=== PATIENT | female | born 1960 | race Caucasian/White ===

== ENCOUNTER 2021-08-29 14:51 | Emergency (ER) | payer BC ==
[~2021-08-29] VITALS: Ht 160 cm; Wt 75.3 kg
--- NOTE | 2021-08-29 15:27 | PHYS DOC ---
General Adult EDM: Chief Complaint: LACERATION/AVULSION HPI: HPI: Patient is a 61-year-old female who presents to the emergency department today for right fifth finger pain and a laceration to the site. Patient reports that she was walking with a stack of 3 dishes when she tripped over something at [employer] and fell. She reports that one of the dishes broke and cut her hand. Patient is unsure of her last tetanus shot. She reports swelling and pain to her right fifth finger as well as bruising. She reports decreased flexion due to pain and denies any decreased sensation. Review of Systems: Review of Systems: HEENT: See HPI Musculoskeletal: See HPI Integument: See HPI Neurologic: Denies hitting head or loss of consciousness Allergies: Allergies: Allergies Coded Allergies Type Severity Reaction Last Updated Verified No Known Drug Allergies 08/29/21 No Physical Exam: PE: Constitutional: Well developed, well nourished, no acute distress, non-toxic appearance. [] HENT: Normocephalic, atraumatic Eyes: PERRL, EOMI, conjunctiva normal, no discharge. [] Neck: Normal range of motion, no tenderness, supple, no stridor. [] Cardiovascular: Normal peripheral perfusion Lungs & Thorax: Normal work of breathing, no tachypnea Abdomen: Soft and flat Skin: Warm, dry, no erythema, no rash. [] Back: Normal range of motion Extremities: No tenderness, no cyanosis, no clubbing, ROM intact, no edema. [] Right fifth finger: Swelling and ecchymosis noted to right fifth finger, 1 cm superficial well approximated laceration noted to the palmar aspect of right fifth finger, decreased flexion due to pain and swelling, neuro intact Neurologic: Alert and oriented X 3, normal motor function, normal sensory function, no focal deficits noted. [] Psychologic: Affect normal, judgement normal, mood normal. [] EKG: EKG: [] Radiology/Procedures: Radiology/Procedures: []PROCEDURE: FINGER(S) RIGHT XR FINGER(S)_RIGHT 2+VIEWS 08/29/2021 3:20 PM INDICATION: Finger laceration injury COMPARISON: None available. TECHNIQUE: 3 views of the fifth digit of the right hand are provided. FINDINGS/ IMPRESSION: There is no acute fracture or dislocation. Moderate to advanced osteoarthrosis of the first carpometacarpal joint with subcortical sclerosis, joint space narrowing and marginal osteophytosis. Moderate osteoarthrosis of the proximal interphalangeal joint of the fifth digit and mild osteoporosis of the distal interphalangeal joint of the fifth digit. Soft tissue swelling is identified along the proximal aspect of the fifth digit. Bone mineralization is within normal limits. There is no soft tissue gas or osseous erosion. No radiopaque foreign body. Electronically signed by: Mouna Davidson MD (08/29/2021 4:19 PM) [facility] DICTATED AND SIGNED BY: MOUNA DAVIDSON MD DATE: 08/29/211616 CC: DELILAH MCKAY; BIRGIT GOODRICH APRN ~PROCEDURE: KNEE RIGHT 3V XR KNEE 3 VIEWS_RT 08/29/2021 3:37 PM INDICATION: Fall, knee pain COMPARISON: None available. TECHNIQUE: 3 views of the right knee are provided. FINDINGS/ IMPRESSION: Mild to moderate medial femorotibial joint space narrowing with marginal osteophytosis compatible with moderate osteoarthrosis. Mild patellofemoral osteoarthrosis. Small knee joint effusion. No acute fracture or dislocation. Bone mineralization is within normal limits. No subcutaneous gas or osseous erosion. No radiopaque foreign density. Electronically signed by: Mouna Davidson MD (08/29/2021 4:20 PM) [facility] DICTATED AND SIGNED BY: MOUNA DAVIDSON MD DATE: 08/29/211618 CC: DELILAH MCKAY; BIRGIT GOODRICH APRN ~ Heart Score: C/O Chest Pain: N/A Risk Factors: Risk Factors: DM, Current or recent (<one month) smoker, HTN, HLP, family history of CAD, obesity. Risk Scores: Score 0 - 3: 2.5% MACE over next 6 weeks - Discharge Home Score 4 - 6: 20.3% MACE over next 6 weeks - Admit for Clinical Observation Score 7 - 10: 72.7% MACE over next 6 weeks - Early Invasive Strategies Course & Med Decision Making: Course & Med Decision Making Pertinent Labs and Imaging studies reviewed. (See chart for details) Patient presents to the emergency department following a fall with the complaints of right fifth finger pain and a laceration to that site. Patient also reports that she had a recent right meniscal repair and is complaining of right knee pain. Imaging was performed that showed no acute findings. Patient's laceration was cleansed in the emergency department and was repaired with Dermabond. Wound is well approximated, no tendon involvement, superficial with no foreign body. Patient educated on laceration care. I discussed with patient all findings and diagnostic testing as well as the need to follow-up with PCP for further evaluation and treatment or return to the ER if any new or worsening symptoms. Strict return precautions were also discussed at length. Patient voiced understanding and agreement with the plan. Patient is hemodynamically stable at the time of disposition. Dragon Disclaimer: Dragon Disclaimer: This electronic medical record was generated, in whole or in part, using a voice recognition dictation system. Departure Departure: Impression: Primary Impression: Laceration Disposition: HOME / SELF CARE / HOMELESS Condition: GOOD Referrals: DELILAH MCKAY (PCP) Patient Instructions: Laceration Care, Adult Additional Instructions: You are seen in the emergency department today for hand injury and laceration to your finger. There is no acute fractures noted to your hand or knee. Your laceration was repaired with skin glue. Please keep this clean and dry. Do not submerge your hand in any water for at least 3 days. Monitor for any signs of infection which include redness, warmth, swelling or drainage. You can take Tylenol and ibuprofen for pain at home. You can also apply ice to any sore areas. Follow-up with your primary care provider within a week. Return to the emergency department if you develop any signs of infection, inability to bear weight or walk, decreased range of motion or decreased sensation in your finger. BIRGIT GOODRICH [employer] Aug 29, 2021 15:27
[2021-08-29] MEDS ORDERED: DIPHTH,PERTUSS(ACELL),TET TOX 0.5 ML DISP.SYRIN. VAX IM ONE (15:45)
--- NOTE | 2021-08-29 16:22 | RAD ---
XR FINGER(S)_RIGHT 2+VIEWS 08/29/2021 3:20 PM INDICATION: Finger laceration injury COMPARISON: None available. TECHNIQUE: 3 views of the fifth digit of the right hand are provided. FINDINGS/ IMPRESSION: There is no acute fracture or dislocation. Moderate to advanced osteoarthrosis of the first carpometa carpal joint with subcortical sclerosis, joint space narrowing and marginal osteophytosis. Moderate o steoarthrosis of the proximal interphalangeal joint of the fifth digit and mild osteoporosis of the d istal interphalangeal joint of the fifth digit. Soft tissue swelling is identified along the proximal aspect of the fifth digit. Bone mineralization is within normal limits. There is no soft tissue gas or osseous erosion. No radiopaque foreign body. Electronically signed by: Radha Davidson MD (08/29/2021 4:19 PM) [facility]
--- NOTE | 2021-08-29 16:22 | RAD ---
XR KNEE 3 VIEWS_RT 08/29/2021 3:37 PM INDICATION: Fall, knee pain COMPARISON: None available. TECHNIQUE: 3 views of the right knee are provided. FINDINGS/ IMPRESSION: Mild to moderate medial femorotibial joint space narrowing with marginal osteophytosis compatible wit h moderate osteoarthrosis. Mild patellofemoral osteoarthrosis. Small knee joint effusion. No acute fr acture or dislocation. Bone mineralization is within normal limits. No subcutaneous gas or osseous er osion. No radiopaque foreign density. Electronically signed by: Rdaha Davidson MD (08/29/2021 4:20 PM) [facility]
[2021-08-29 16:30] VITALS: BP 130/79
== END 2021-08-29 16:40 | disposition home or self-care (01) ==
LOC: ER 14:51
DX: S61.216A Laceration without foreign body of right little finger without damage to nail, initial encounter (principal); M25.561 Pain in right knee; W18.09XA Striking against other object with subsequent fall, initial encounter; Y93.01 Activity, walking, marching and hiking; Y92.22 Religious institution as the place of occurrence of the external cause; Y99.8 Other external cause status
CPT/HCPCS: 12001; 73140; 73562; 90471; 90715; 99284